=== PATIENT | female | born 1955 | race Two or more races ===

== ENCOUNTER 2020-12-11 16:52 | Outpatient (CLI) | payer OTHER | END 2020-12-11 17:00 | disposition home or self-care (01) | LOC: LAB 16:52 | PROVIDERS: ATTEND Radiology Diagnostic Radiology | DX: N20.0 Calculus of kidney (principal) ==

== ENCOUNTER 2020-12-15 09:03 | Outpatient (CLI) | payer OTHER | END 2020-12-15 10:12 | disposition home or self-care (01) | LOC: TOM 09:03 | PROVIDERS: ATTEND Orthopaedic Surgery Hand Surgery | DX: M19.042 Primary osteoarthritis, left hand (principal); M19.041 Primary osteoarthritis, right hand; K59.09 Other constipation; M25.562 Pain in left knee; M25.561 Pain in right knee; K76.0 Fatty (change of) liver, not elsewhere classified; M25.551 Pain in right hip ==